=== PATIENT | male | born 1990 | race Caucasian/White ===

== ENCOUNTER 2016-12-14 06:44 | Outpatient (CLI) | payer OTHER ==
[2013-01-02 14:04] VITALS: TEMP 97.8
[2013-09-28 07:18] VITALS: BMI 37.9
[2016-12-14 07:00] LABS: BASOPHILS % (AUTO) 0.2 % (0.0-3.0); EOSINOPHILS # (AUTO) 0.1 K/ul (0.0-0.7); EOSINOPHILS % (AUTO) 1.6 % (0.0-7.0); HEMATOCRIT 44.7 % (42.0-52.0); HEMOGLOBIN 14.9 g/dl (14.0-18.0); IMMATURE GRANULOCYTE % (AUTO) 0.2 % (0.0-5.0); LYMPHOCYTES # (AUTO) 2.8 K/uL (0.60-3.4); LYMPHOCYTES % (AUTO) 34.1 (10.0-50.0); MEAN CORPUSCULAR HEMOGLOBIN 27.8 pg (27.0-31.0); MEAN CORPUSCULAR HGB CONC 33.3 (31.8-35.4); MEAN CORPUSCULAR VOLUME 83.4 fl (80.0-94.0); MONOCYTES # (AUTO) 0.6 K/uL (0.4-2.0); MONOCYTES % (AUTO) 6.8 (0-10); NEUTROPHILS # (AUTO) 4.6 K/ul (2.0-6.9); NEUTROPHILS % (AUTO) 57.1; PLATELET COUNT 219 10^3/uL (140-440); RED BLOOD COUNT 5.36 10^6/ul (4.70-6.10); WHITE BLOOD COUNT 8.07 K/ul (4.2-10.2)
[2016-12-14 07:19] LABS: BILIRUBIN,URINE Negative (NEGATIVE); KETONES,URINE Negative (NEGATIVE); LEUKOCYTE ESTERASE ,URINE Negative (NEGATIVE); NITRITE,URINE Negative (NEGATIVE); PROTEIN,URINE Negative (NEGATIVE); URINE, BLOOD Trace-lysed (NEGATIVE)
[2016-12-14 07:20] LABS: ADD URINE MICROSCOPIC YES
[2016-12-14 07:38] LABS: ALBUMIN 4.1 g/dL (3.4-5.0); ALBUMIN/GLOBULIN RATIO 1.21; BILIRUBIN,TOTAL 0.44 mg/dL (0.00-1.20); BUN/CREATININE RATIO 16.66; CALCIUM 9.4 mg/dL (8.2-10.2); CHOL/HDL RATIO 5.2 (4.5-6.4); CREATININE 0.9 mg/dL (0.60-1.10); TOTAL PROTEIN 7.5 g/dL (6.4-8.2)
== END 2016-12-14 06:45 | disposition home or self-care (01) ==
LOC: LAB 06:44
PROVIDERS: ATTEND Family Medicine
DX: Z00.00 Encounter for general adult medical examination without abnormal findings (principal)
CPT/HCPCS: 36415; 80053; 80061; 81001; 83036; 84443; 85025

== ENCOUNTER 2017-11-04 07:11 | Outpatient (CLI) | payer OTHER ==
[2013-01-02 14:04] VITALS: TEMP 97.8
[2013-09-28 07:18] VITALS: BMI 37.9
== END 2017-11-04 07:12 | disposition home or self-care (01) ==
LOC: LAB 07:11
PROVIDERS: ATTEND Family Medicine
DX: G47.26 Circadian rhythm sleep disorder, shift work type (principal)
CPT/HCPCS: 36415; 80053; 80061; 85025

== ENCOUNTER 2018-08-24 09:16 | Outpatient (CLI) ==
[2013-01-02 14:04] VITALS: TEMP 97.8
[2013-09-28 07:18] VITALS: BMI 37.9
== END 2018-08-24 09:17 | disposition home or self-care (01) ==
LOC: LAB 09:16
PROVIDERS: ATTEND Family Medicine
DX: Z00.00 Encounter for general adult medical examination without abnormal findings (principal)
CPT/HCPCS: 36415; 80053; 80061; 81001; 83036; 84443; 85025

== ENCOUNTER 2018-10-13 20:07 | Outpatient (CLI) | payer OTHER ==
[2013-01-02 14:04] VITALS: TEMP 97.8
[2013-09-28 07:18] VITALS: BMI 37.9
--- NOTE | 2018-10-13 20:32 | DI ---
EXAM: Two-view chest HISTORY: Productive cough COMPARISON: Two-view chest 10/25/2015 FINDINGS: The cardiomediastinal silhouette is stable. There is an azygos lobe. There is no evidence of infiltrate or effusion. No osseous abnormalities are identified. IMPRESSION: No evidence of active pulmonary disease or interval change
== END 2018-10-13 20:08 | disposition home or self-care (01) ==
LOC: RAD 20:07
PROVIDERS: ATTEND Family Medicine
DX: R05 Cough (principal)